=== PATIENT | male | born 1965 | race Caucasian/White ===

== ENCOUNTER 2024-02-15 11:03 | Emergency (ER) | payer BC, SELFPAY ==
--- NOTE | 2024-02-15 11:16 | ED.GENADULT ---
HPI - General Adult General Chief complaint: Unspecified Stated complaint: Fatigue/Body Aches Time Seen by Provider: 02/15/24 11:18 Source: patient and RN notes reviewed Mode of arrival: ambulatory Limitations: no limitations History of Present Illness HPI narrative: 58-year-old male presents to the [facility] with complaints of fatigue and body aches that started at 6:00 p.m. last night, 17 hours [employer]. Patient states he was outside at his brother's house all weekend. Denies any chest pain, shortness of breath. Eating and drinking normally. States that he was drinking water last night. Try to go to work and was sent home because he feels extremely fatigued. Onset (ago): hour(s) (17) Treatments prior to arrival: other (Drink water) Related Data Allergies Allergy/AdvReac Type Severity Reaction Status Date / Time No Known Allergies Allergy Unverified 03/03/18 18:09 Review of Systems Review of Systems: All systems reviewed & are unremarkable except as noted in HPI and below Constitutional: Constitutional: Reports as per HPI and Reports fatigue Eyes: Eyes: Reports no additional eye complaints ENT: Reports system reviewed and no additional complaints, except as documented Cardiovascular: Cardiovascular: Reports no additional cardiovascular complaints, Denies chest pain and Denies dyspnea Respiratory: Respiratory: Reports no additional respiratory complaints, Denies chest congestion, Denies cough and Denies dyspnea Gastrointestinal: Gastrointestinal: Reports no additional gastrointestinal complaints, Denies abdominal pain, Denies nausea and Denies vomiting Musculoskeletal: Musculoskeletal: Reports no additional musculoskeletal complaints Integumentary/Breasts: Skin/Breast: Reports system reviewed and no additional complaints, except as docu Neurologic: Reports system reviewed and no additional complaints, except as documented Psychiatric: Psychiatric: Reports no additional psychiatric complaints Allergic/Immunologic: Allergic/Immunologic: Reports no additional allergic/immunologic complaints PMFSH Comments At the time of my signature, I reviewed and agree with the nursing past medical, surgical, social, and family history. There is no relevant family history pertinent to the patient complaint. Exam Const: General: cooperative, healthy appearing, comfortable, no acute distress, well developed, alert and well nourished Nutritional Appearance: well nourished Orientation/consciousness: patient oriented x3 Limitations: no limitations HENMT: Head: normal to inspection Ears: hearing grossly normal bilaterally and external ears normal Face/Nose/Sinus: Normal external nose present, Normal nares present, Normal nasal mucous membranes and turbinates present, normal facial exam and face symmetric Face and sinus: normal facial exam and face symmetric Mouth: Yes moist mucous membranes Throat: posterior oropharynx normal, uvula midline and no uvular edema Eyes: General: appearance normal, both eyes and all related structures Alignment and Position: alignment normal Periorbital: periorbital findings normal Pupils: Equal, round and reactive pupils present EOM: EOMs intact bilaterally Neck: Neck: normal visual inspection, full ROM, no lymphadenopathy and no meningeal signs Chest: Chest palpation & inspection: normal inspection of the chest Resp: Effort & Inspection: normal respiratory effort and able to speak in complete sentences Auscultation: clear to auscultation bilaterally, no crackles, no rales, no rhonchi and no wheezes Cardio: Rate: regular rate Rhythm: regular rhythm GI: GI Palp: No abdominal tenderness Skin: General skin exam: normal color and no rashes or lesions noted Lesions: no lesions Rashes: no rashes Trauma: no lacerations or abrasions Wounds: no wounds Neuro: General: patient oriented x3, gait normal, tone normal, moves all extremities and no meningeal signs Cranial nerves: Yes Equal, round and reactive p
[2024-02-15 11:17] VITALS: BP 133/66; PULSE 96; RESP 16; TEMP 36.4; O2SAT 97
== END 2024-02-15 11:32 | disposition home or self-care (01) ==
PROVIDERS: Emergency Provider Nurse Practitioner
DX: R53.83 Other fatigue (principal)
CPT/HCPCS: 99202; G0463

== ENCOUNTER 2025-05-11 15:37 | Emergency (ER) | payer BC, SELFPAY ==
--- NOTE | 2025-05-11 15:39 | ED_ITS ---
HPI - General Adult General Chief complaint: Wound/Laceration Stated complaint: Finger/Skin Sore Time Seen by Provider: 05/11/25 15:47 Source: patient, RN notes reviewed and old records reviewed Mode of arrival: ambulatory Limitations: no limitations History of Present Illness HPI narrative: 59-year-old male presents to the [facility] with Five days of redness, swelling to the right middle finger. Area for it and swelling on the radial aspect right middle finger. States that he had and hangnail which he has been picking and the pain and swelling started. States that he tried popping it with a needle Onset (ago): day(s) (5) Related Data Home Medications ?Medication ?Instructions ?Recorded ?Confirmed ?Last Taken ?Type meloxicam 15 mg tablet mg 05/11/25 Unknown History Allergies Allergy/AdvReac Type Severity Reaction Status Date / Time No Known Allergies Allergy Verified 05/11/25 15:39 Review of Systems Review of Systems: All systems reviewed & are unremarkable except as noted in HPI and below Constitutional: Constitutional: Reports no additional constitutional complaints ENT: Reports system reviewed and no additional complaints, except as documented Cardiovascular: Cardiovascular: Reports no additional cardiovascular complaints, Denies chest pain and Denies dyspnea Respiratory: Respiratory: Reports no additional respiratory complaints, Denies chest congestion, Denies cough and Denies dyspnea Musculoskeletal: Musculoskeletal: Reports no additional musculoskeletal complaints Integumentary/Breasts: Skin/Breast: Reports as per HPI PMFSH Comments At the time of my signature, I reviewed and agree with the nursing past medical, surgical, social, and family history. There is no relevant family history pertinent to the patient complaint. Exam Const: General: cooperative, healthy appearing, comfortable, no acute distress, well developed, alert and well nourished Nutritional Appearance: well nourished Orientation/consciousness: patient oriented x3 Limitations: no limitations HENMT: Head: normal to inspection Eyes: General: appearance normal, both eyes and all related structures Alignment and Position: alignment normal Neck: Neck: normal visual inspection, full ROM, no lymphadenopathy and no meningeal signs Chest: Chest palpation & inspection: normal inspection of the chest Resp: Effort & Inspection: normal respiratory effort and able to speak in complete sentences Cardio: Rate: regular rate Skin: General skin exam: normal color and no rashes or lesions noted Other: Red area to the radial aspect middle finger. Fluctuant center Neuro: General: patient oriented x3, gait normal, moves all extremities and no meningeal signs Cognition (Neuro): normal cognition Speech: normal speech Gait exam (Neuro): Normal gait present Extrem: General: normal to inspection, full ROM, capillary refill normal and normal gait Right upper extremity: Extremity exam: right hand swelling of the 3rd digit at the distal phalanx and at the nailbed Psych: Appearance: grossly normal and well kempt Mental Status: mental status grossly normal Speech and movement: Normal speech and movement present and Clear speech present Affect: normal affect Attitude: cooperative Course Course Emergency Course: Area soaks 15 minutes with saline and Betadine. Took him 18 gauge needle, removed part of the cuticle, drained, collected culture. Patient's appropriate for outpatient treatment of paronychia Level of Care: Express Care Visit Vital Signs Vital signs: Vital Signs Temperature 98.1 F 05/11/25 15:45 Pulse Rate 97 05/11/25 15:45 Respiratory Rate 16 05/11/25 15:45 Blood Pressure 109/75 05/11/25 15:45 Pulse Oximetry 98 05/11/25 15:45 Oxygen Delivery Room Air 05/11/25 15:45 Temperature 98.1 F 05/11/25 15:45 Pulse Rate 97 05/11/25 15:45 Respiratory Rate 16 05/11/25 15:45 Blood Pressure 109/75 05/11/25 15:45 Pulse Oximetry 98 05/11/25 15:45 Oxygen Delivery Room Air 05/11/25 15:45 Reviewed Procedures Abscess I/D hand: Date of Incision: 05/11/25 Time of Incision: 16:02 Side (if applicable): right Technique: needle aspiration Amount of fluid expressed (mL): 2 I&D Results: Pus Medical Decision Making MDM Narrative Medical decision making narrative: Patient sitting in exam room. Patient is nontoxic vitals stable. Patient presents with a paronychia, drained with a needle aspiration, culture collected and sent to lab. Patient being covered with Bactrim. Patient is appropriate for outpatient treatment with close follow-up Discharge instructions reviewed with patient, as well as provided in writing per nursing staff. The instructions also include specific and strict return/GO TO THE ER as well as f/u information. All questions have been answered, and the patient deny any further questions with discharge and discharge plan. Some parts of this dictation were generated by voice recognition software and may contain typographical and/or grammatical inaccuracies. Differential Diagnosis Differential Diagnosis: Cellulitis, abscess, paronychia Medical Records Medical records reviewed: Yes I reviewed the external patient's medical records. Vital Signs Vital Signs: Vital Signs Temperature 98.1 F 05/11/25 15:45 Pulse Rate 97 05/11/25 15:45 Respiratory Rate 16 05/11/25 15:45 Blood Pressure 109/75 05/11/25 15:45 Pulse Oximetry 98 05/11/25 15:45 Oxygen Delivery Room Air 05/11/25 15:45 Temperature 98.1 F 05/11/25 15:45 Pulse Rate 97 05/11/25 15:45 Respiratory Rate 16 05/11/25 15:45 Blood Pressure 109/75 05/11/25 15:45 Pulse Oximetry 98 05/11/25 15:45 Oxygen Delivery Room Air 05/11/25 15:45 Reviewed Lab Data Lab results reviewed: Yes I reviewed the patient's lab results. Labs: Reviewed Critical Care Time Critical Care Time Critical Care Time: No Discharge Plan Discharge Clinical Impression: Paronychia Patient Disposition: Home Condition: Stable Instructions: Antibiotic Form, Paronychia (ED) Additional Instructions: So care finger twice daily for 15-20 minutes in warm soapy water with Epson salt. Take the antibiotic as prescribed. Take Tylenol alternating with ibuprofen as needed for pain. Follow-up with primary care provider in a week to 10 days. For new or worsening symptoms go directly to the emergency room We did collect culture with me opened the abscess and sent to our lab. If the antibiotic prescribed does not completely cover what grows out we will notify you. Patient Language: Icelandic Prescriptions: New sulfamethoxazole-trimethoprim [Bactrim DS] 800-160 mg tablet 1 tablet PO Q12H Qty: 14 0RF No Action meloxicam 15 mg tablet Follow-up/Referrals: Danny,Gurdeep Chandler MD [Primary Care Provider, Unknown] - 2 Weeks Clinical Impression: Paronychia Time of Disposition: 16:09
--- OUTSIDE RECORDS SUMMARY | 2025-05-11 15:39 | XMS_ITS | Clinical Summary ---
Author Organization [facility] Address [address] [address] Phone Care Team Providers Care Synchronizer Name Role Phone Gurdeep Delgado MD Primary Care Provider [phone]- [phone] Allergies No known active allergies Medications fish oil-omega-3 fatty acids 1000 MG Capsule Take 1,000 mg by mouth 2 times daily. Active ibuprofen (Advil) 200 MG Capsule Take 2 Capsules by mouth if needed for Moderate or more severe pain (Q6 PRN). Active other 1 Application by Other route if needed for Other (roll on medicatio for shoulder pain). Active meloxicam (MOBIC) 15 MG Tablet Take 1 Tablet by mouth daily. 30 Tablet Active Active Problems Problem Noted Date Diagnosed Date Elevated LFTs 02/25/2024 Chronic pain in right foot 06/19/2020 SUNNY (generalized anxiety disorder) 06/19/2020 Encounters Date Type Department Care Team Description 04/24/2025 11:45 AM CDT Office Visit [facility] - Primary Care - [place] [address] [place] [address] Shavon Uriostegui PAC Acute pain of left shoulder (Primary Dx); Acute pain of left knee; Low back pain, unspecified back pain laterality, unspecified chronicity, unspecified whether sciatica present Discharge Disposition: Discharged to home or Selfcare 04/24/2025 Travel 04/24/[address] [facility] [address] [place] [address] Gurdeep Delgado MD Shoulder Pain from Last 3 Months Family History Medical History Relation Name Comments Prostate Cancer Father No Known Problems Mother Relation Name Status Comments Brother Alive Father Alive Mother Alive Sister Alive Social History Tobacco Use Types Packs/Day Years Used Date Smoking Tobacco: Never Passive Smoke Exposure: Never Smokeless Tobacco: Never Tobacco Cessation:Counseling Given: No Alcohol Use Standard Drinks/Week Comments Yes 0 (1 standard drink = 0.6 oz pur e alcohol) very little [facility] Utilities Answer Date Recorded In the past 12 months has e electric, gas, oil, or water [employer] threatened to shut off services in your home? No 03/29/2024 Social Connection and Isolation Panel Answer Date Recorded In a typical week, how many times do you talk on the phone with family, friends, or neighbors? Twice a week 03/29/20 How often do you get togethe r with friends or relatives? Once a week 03/29/2024 How often do you attend [facility] or lutheran services? Never 03/29/2024 Do you belong to any clubs o r organizations such as congregation groups, unions, fraternal or athletic groups, or school groups? Yes 03/29/2024 How often do you attend meet ings of the clubs or organizations you belong to? 1 to 4 times per year 03/29/2024 Are you , , di vorced, , never , or living with a partner? Never 03/29/2024 AUDIT-C Answer Date Recorded Q1: How often do you have a drink containing alcohol? Never 03/29/2024 Q2: How many drinks containi ng alcohol do you have on a typical day when you are drinking? Patient does not drink Q3: How often do you have si x or more drinks on one occasion? Never 03/29/2024 Overall Financial Resource Strain (CARDIA) Answe r Date Recorded How hard is it for you to pa y for the very basics like food, housing, medical care, and heating? Not very hard 03/29/2024 PHQ-2 Answer Date Recorded Total Score - Questions 1-9 0 03/11 [facility] [place] [facility] Occupat ional Health - Occupational Stress Questionnaire Answer Date Recorded Do you feel stress - tense, restless, nervous, or anxious, or unable to sleep at night because your mind is troubled all the time - these days? Not at all 03/29/2024 Exercise Vital Sign Answer Date Recorde d On average, how many days pe r week do you engage in moderate to strenuous exercise (like a brisk walk)? 5 days 03/29/2024 On average, how many minutes do you engage in exercise at this level? 60 min 03/29/2024 Hunger Vital Sign Answer Date Recorded Within the past 12 months, y ou worried that your food would run out before you got the money to buy more. Never true 03/29/20 24 Within the past 12 months, t he food you bought just didn't last and you didn't have money to get more. Never true 03/29/2024 PRAPARE - Transportation Answer Date Re corded In the past 12 months, has l ack of transportation kept you from medical appointments or from getting medications? No 03/11 In the past 12 months, has l ack of transportation kept you from meetings, work, or from getting things needed for daily living? No 03/29/2024 Housing Stability Vital Sign Answer Eliot e Recorded In the last 12 months, was t here a time when you were not able to pay the mortgage or rent on time? No 03/29/2024 In the past 12 months, how m any times have you moved where you were living? 0 03/29/2024 At any time in the past [address] [facility], were you homeless or living in a residential (including now)? No 03/29/2024 Sexually Active Control Partners Comments Not Currently Female Sex and Gender Information Value Date Recorded Sex Assigned at Not on file Legal Sex Male 11:16 PM CDT Gender Identity Not on file Sexual Orientation Not on file Last Filed Vital Signs Vital Sign Reading Time Taken Comments Blood Pressure 112/72 04/24/2025 12:03 PM CDT Pulse 74 04/24/2025 12:03 PM CDT Temperature 36.7 C (98 F) 04/24/2025 12:03 PM CDT Respiratory Rate 12 04/24/2025 12:03 PM CDT Oxygen Saturation 96% 04/24/2025 12:03 PM CDT Inhaled Oxygen Concentration - - Weight 107 kg (236 lb) 04/24/2025 12:03 PM CDT Height 188 cm (6' 2) 07/26/2024 1:33 PM [employer] Body Mass Index 30.3 07/26/2024 1:33 PM [employer] Plan of Treatment Upcoming Encounters Date Type Department Care Team (Late st Contact Info) Description 08/22/2025 1:00 PM [employer] Office Visit [facility] - Primary Care - [address] [place] [address] Gurdeep Delgado MD [address] [address] Health Maintenance Due Date Last Done Comments Hepatitis C Virus (HCV) Screening 1967 TdaP Immunization 1967 Hepatitis B Immunization (1 of 3 - 19+ 3-dose series) 1986 Cologuard 2012 Immunochemical Fecal Occult Blood 2012 Pneumococcal Immunization (5 0+ years) (1 of 1 - PCV) 2017 Zoster Immunization (1 of 2) 2017 SARS-COV-2 Immunization (3 - season) 2025 01/08/2021, 12/14/2020 Colonoscopy 10/03/2029 10/03/2019 Colorectal Cancer Screening 10/03/2029 Respiratory Syncytial Virus (RSV) Immunization (Adult) (1 - 1-dose 75+ series) 2042 PSA Discussion Completed 02/25/2024 Human Papillomavirus (HPV) Immunization Aged Out No longer eligible based on patient's age to complete this topic Influenza Immunization Discontinued Meningococcal Immunization (ACWY) Aged Out No longer eligible based on patient's age to complete this topic Rotavirus Immunization Aged Out No lo nger eligible based on patient's age to complete this topic Procedures Procedure Name Priority Date/Time Associated Diagnosis Comments PSA SCREEN Routine 02/25/2024 9:37 AM CDT Screening for prostate cancer from Last 3 Months or Most Recently Relevant to Health Maintenance Results * PSA SCREEN (02/25/2024 9:37 AM CDT) PSA SCREEN, TOTAL 2.72 <4.00 ng/mL 02/25/2024 1:44 PM CDT [facility] Blood Venipuncture / Unknown 02/25/2024 9:37 AM CDT 02/25/2024 9:37 AM CDT Narrative [facility] - 02/25/2024 1:44 PM CDT The [employer] Total PSA assay is a Chemiluminescent Microparticle Immunoassay (CMIA) for the quantitative determination of total PSA (both free PSA and PSA complexed to [id number]) in human serum. Total PSA values obtained with different assay methods, including Meza PSA assays, cannot be used interchangeably. Shavon Uriostegui PAC CHEMISTRY ORDERAB LES Final Result [facility] [address] [facility] [place] [address] from Last 3 Months or Most Recently Relevant to Health Maintenance Insurance [facility] Care Teams Synchronizer Relationship Specialty Start Date End Date Gurdeep Delgado MD PCP - General Internal Medicine 01/12/19
--- OUTSIDE RECORDS SUMMARY | 2025-05-11 15:39 | XMS_ITS | Clinical Summary ---
Author Organization [facility] [address] [facility] lto Address [address] [place] [address] Care Team Providers Care Machine Mover Name Role Phone Gurdeep Delgado MD Primary Care Provider [phone]- [phone] Allergies No known active allergies Medications ondansetron ODT (ZOFRAN-ODT) 8 mg disintegrating tablet Take 1 tablet (8 mg total) by mouth every 8 (eight) hours as needed for nausea or vomiting 30 tablet 4 Active amoxicillin-clavula linda (AUGMENTIN) 875-125 mg per tablet Take 1 tablet by mouth 2 (two) times a day Active ciprofloxacin-dexAM ETHasone (CIPRODEX) otic suspension INSTILL 4 DROPS INTO THE LEFT EAR BY OTIC ROUTE TWICE DAILY FOR 7 DAYS Active doxycycline 100 mg tablet Take 1 tablet/capsu le (100 mg total) by mouth 2 (two) times a day 4 Active Active Problems Problem Noted Date Diagnosed Date Chronic recurrent sinusitis 06/13/2015 Deviated nasal septum 06/13/2015 Hypertrophy of nasal turbinates 06/13/2015 Deformity of nose 06/13/2015 Surgical History Surgery Date Site/Laterality Comments [place] RHINP PRIM COMPLETE XTRNL PARTS Complete Rhinoplasty (Bony Pyramid And Cartilages) - (Added by TW Conv) [place] SEPTOPLASTY/SUBMUCOUS RES ECJ W/WO CARTILAGE GRF Septoplasty - (Added by TW Conv) [place] SUBMUCOUS RESCJ INFERIOR TURBINATE PRTL/COMPL Submucous Resection Of Turbinate - (Added by TW Conv) [place] NASAL/SINUS NDSC SURG W/B X POLYPC/DBRDMT SPX Nasal Endoscopy Polypectomy - (Added by TW Conv) Social History Tobacco Use Types Packs/Day Years Used Date Smoking Tobacco: Never Personal Safety Answer Date Recorded Have you ever been in or are you currently in a harmful physical or emotional relationship or is someone making you feel afraid or unsafe? Denies 02/18/2024 Sex and Gender Information Value Date Recorded Sex Assigned at Not on file Legal Sex Male 11:38 AM [employer]ODUCTION ENGINE[employer] Gender Identity Not on file Sexual Orientation Not on file Obstetrics History Last Filed Vital Signs Vital Sign Reading Time Taken Comments Blood Pressure 112/58 02/18/2024 12:00 PM CDT Pulse 72 02/18/2024 12:00 PM CDT Temperature 36.7 C (98 F) 02/18/2024 7:34 AM CDT Respiratory Rate 16 02/18/2024 7:34 AM CDT Oxygen Saturation 95% 02/18/2024 12:00 PM CDT Inhaled Oxygen Concentration - - Weight 104.3 kg (230 lb) 02/18/2024 7:34 AM CDT Height 188 cm (6' 2) 02/18/2024 7:34 AM CDT Body Mass Index 29.53 02/18/2024 7:34 AM CDT Plan of Treatment Health Maintenance Due Date Last Done Comments Colon Cancer Screening-Colonoscopy 1967 Depression Screening 1967 Prostate Cancer Screening-PSA 1967 DTaP/Tdap/Td Vaccine (1 - Tdap) 1978 Hepatitis B Screening 1985 Regular Well Visit/Exam 18-64 1985 Zoster Vaccine (1 of 2) 2017 Covid-19 Vaccine (3 - 2024-2 6 season) 2025 01/08/2021, 12/14/2020 Influenza Vaccine (#1) 2025 Hepatitis C Screening Completed 02/18/2024 Pneumococcal vaccine <65 Aged Out No longer eligible based on patient's age to complete this topic Procedures Procedure Name Priority Date/Time Associated Diagnosis Comments HEPATITIS PANEL, ACUTE STAT 02/18/2024 10:05 AM CDT from Last 3 Months or Most Recently Relevant to Health Maintenance Results * Hepatitis panel, acute Blood (02/18/2024 10:05 AM CDT) Hep A IgM Nonreactive Nonreactive Comment: Interpretive Data: If Hep A IgM Ab is reported as Equivocal, a new sample should be drawn in two weeks for testing. Current interpretive data was last revised on 19. Testing performed by: [facility], [address] [place] [address]., [id number] Hep B core IgM Nonreactive Nonreactive Lilliana MELVIN (BENEDICT) Comment: Interpretive Data If HepB Core IgM Ab is reported as Equivocal, a new sample should be drawn in two weeks for testing. Current interpretive data was last revised on 19. Testing performed by: [facility], [address] [place] [address]., [id number] Hep C Ab Nonreactive Nonreactive GABBY MELVIN (BENEDICT) Comment: Interpretive Data Nonreactive: Antibodies to HCV not detected. Does NOT exclude the possibility of recent exposure to HCV. Equivocal: Equivocal for HCV antibodies. Supplemental molecular testing will be automatically performed to determine infection status in accordance with current CDC screening recommendations. Reactive: Positive for HCV antibodies. This may represent current or past HCV infection. Supplemental molecular testing will be automatically performed to determine current infection status in accordance with current CDC screening recommendations. Interpretive data was last revised on 2019. Testing performed by: [facility], [address] [place] [address]., [id number] HepBsAg Nonreactive Nonreactive GABBY MELVIN (BENEDICT) Comment:Testing performed by : [facility], [address] [place] [address]., [id number] Blood 02/18/2024 10:0 5 AM CDT 02/18/2024 11:35 AM CDT us Conrad Leung MD LAB MICROBIOLOGY - GENERAL ORDERABLES Final Result GABBY MELVIN (BENEDICT) [facility] Department [place] [address] from Last 3 Months or Most Recently Relevant to Health Maintenance [place] [employer] [place] [employer] [place] Care Teams Machine Mover Relationship Specialty Start Date End Date Gurdeep Delgado MD [address] [place] [address] PCP - General Internal Medicine 02/18/24
[2025-05-11 15:45] VITALS: BP 109/75; PULSE 97; RESP 16; TEMP 36.7; O2SAT 98
== END 2025-05-11 16:21 | disposition home or self-care (01) ==
PROVIDERS: Emergency Provider Nurse Practitioner; PCP Internal Medicine
DX: L03.011 Cellulitis of right finger (principal)
CPT/HCPCS: 10060; 87070; 87075; 99213; G0463